=== PATIENT | female | born 1935 | race Caucasian/White ===

== ENCOUNTER 2017-07-24 08:37 | Inpatient (IN) | payer MEDICARE, OTHER ==
[~2017-07-24] VITALS: Ht 157.5 cm; Wt 54.4 kg
[~2017-07-24 08:37] MED LIST: ACCUNEB SO1.25 MG/1 INH; ACETAMINOPHEN325 M1 PO; ADULT LOW DOSE81 MG PO; ALBUTEROL; ALBUTEROL INHAL17 GM IH; ALBUTEROL2.5 MG/0.1; ALBUTEROL2.5 MG/31 INH; ALPHA LIPOIC A600 M1 PO; AMBEREN; ARAVA20 MG PO; AZITHROMYCIN 2250 MG PO; CEFTIN500 MG PO; CEFUROXIME500 MG PO; CENTRUM SILVER1 EAC4 PO; CITRATE OF MAG296 M1 PO; DOXYCYCLINE 10100 MG PO; DUONEB 2.5-0.5 M3 ML INH; ELEMENTAL CALC600 MG PO; FOLBIC RF TABL1 EACH PO; GLUCOPHAGE500 MG; GUAIFENESIN DM1 EACH PO; HYDROCHLOROTHIA25 M1 PO; HYDROCHLOROTHIA25 M2 PO; HYDROXYCHLOROQ200 M1 PO; LACTINEX CHEWA1 EACH PO; LEVAQUIN 500 M500 M2 PO; LEVOTHROID PO; LEVOXYL88 MCG PO; LOPRESSOR 50 MG50 M1 PO; MECLIZINE HCL25 M1 PO; MEDROLDOSEPACK PO; METFORMIN HCL500 MG PO; MOTION RELIEF25 MG PO; MUCINEX TA600 MG/TA2 PO; MULTIVITAMINS PO; OSELB75 PO; PEPCID20 MG PO; PRED FORTE 1% EY5 M1 OPHTHALMIC; PREDNISONE 10 M10 M1; PREDNISONE 10 M10 MG PO; PROAIR HFA8.5 GM INH; PROBIOTIC1 EAC1 PO; SIMVASTATIN10 MG PO; TOPROL XL50 MG PO; VITAMIN D1000 UNI1 PO; VITAMIN D3400 UNI1 PO; VITAMINC500 PO; ZITHROMAX250 MG PO; ZOCOR 10 MG TAB10 MG PO; ZPAK PO
[2017-07-24 08:52] VITALS: BP 177/86
[2017-07-24 09:16] LABS: ABSOLUTE BASOPHILS 0.1 thou/uL (0.0-0.2); ABSOLUTE EOSINOPHILS 0.4 thou/uL (0.0-0.7); ABSOLUTE LYMPHOCYTES 2.1 thou/uL (0.8-5.3); ABSOLUTE MONOCYTES 0.5 thou/uL (0.0-1.2); ABSOLUTE NEUTROPHILS 4.8 thou/uL (1.6-8.1); EOSINOPHILS 5.5 %; HEMATOCRIT 39.9 % (37.0-47.0); HEMOGLOBIN 13.2 gm/dL (12.0-15.0); LYMPHOCYTES 26.2 %; MCH 27.4 pg (26.0-34.0); MCV 83.1 fL (80.0-100.0); MONOCYTES 6.7 %; MPV 7.4 fl. (7.2-11.1); NUCLEATED RBCS 0 /100WBC; PLATELET COUNT* 295 thou/uL (150-400); POLYS 60.6 %; RBC 4.79 mil/uL (4.20-5.00); RDW-CV 14.7 % (10.5-14.5); WBC 7.9 thou/uL (4.0-11.0)
[2017-07-24 09:18] LABS: ANION GAP 8 mmol/L (7-16); BUN 15 mg/dL (7-18); CALCIUM 8.9 mg/dL (8.5-10.1); CHLORIDE 107 mmol/L (98-107); CO2 30 mmol/L (21-32); CREATININE 0.9 mg/dL (0.6-1.3); GLUCOSE 120 mg/dL (70-99); POTASSIUM 3.7 mmol/L (3.5-5.1); SODIUM 145 mmol/L (136-145)
[2017-07-24 09:25] LABS: ALBUMIN 3.4 g/dL (3.4-5.0); ALKALINE PHOSPHATASE 96 U/L (46-116); LIPASE 95 U/L (73-393); SGOT 14 U/L (15-37); SGPT 15 U/L (30-65); TOTAL BILIRUBIN 0.6 mg/dL (<0.1-1.0); TOTAL PROTEIN 6.7 g/dL (6.4-8.2); TROPONIN-I LEVEL <0.06 ng/mL (<0.06)
[2017-07-24 10:18] LABS: URINE BILIRUBIN NEGATIVE (Negative); URINE BLOOD NEGATIVE (Negative); URINE CLARITY CLEAR; URINE COLOR YELLOW; URINE GLUCOSE-RANDOM NEGATIVE (Negative); URINE KETONES NEGATIVE (Negative); URINE LEUKOCYTES-REFLEX NEGATIVE (Negative); URINE NITRITE-REFLEX NEGATIVE (Negative); URINE PROTEIN NEGATIVE (Negative); URINE UROBILINOGEN 0.2 E.U./dl (0.2-1.0)
[2017-07-24 13:00] VITALS: BP 177/86
[2017-07-24 13:23] VITALS: BP 177/86
[2017-07-24 21:30] VITALS: BP 150/67
[2017-07-25 00:31] VITALS: BP 133/62
[2017-07-25 03:57] VITALS: BP 128/53
[2017-07-25 04:37] LABS: HEMATOCRIT 36.7 % (37.0-47.0); HEMOGLOBIN 12.2 gm/dL (12.0-15.0); MCH 27.7 pg (26.0-34.0); MCHC 33.3 g/dL (28.0-37.0); MCV 83.1 fL (80.0-100.0); MPV 7.4 fl. (7.2-11.1); RBC 4.41 mil/uL (4.20-5.00); RDW-CV 14.9 % (10.5-14.5); WBC 9.8 thou/uL (4.0-11.0)
[2017-07-25 05:20] LABS: CALCIUM 8.7 mg/dL (8.5-10.1); CREATININE 0.9 mg/dL (0.6-1.3); MAGNESIUM 1.7 mg/dL (1.8-2.4); POTASSIUM 4.3 mmol/L (3.5-5.1)
[2017-07-25 08:00] VITALS: BP 140/62
--- NOTE | 2017-07-25 12:22 | EKG ---
[place] [address] ELECTROCARDIOGRAM REPORT Name: AMMY PISANO Room: [address] ADM IN M.R.#: [id number] Admission: 07/24/17 Attend Phys: Cesar Welch, Discharge: Date of : 37 Report #: [id number] THIS REPORT FOR: //name// [facility] ED Test Date: 2017-07-24 Test Time: 09:05:09 Pat Name: AMMY PISANO Department: Room: [facility] Gender: F Demo Coordinator: Ralph HILL : 1935 Requested By: Kulwinder Alonso Order Number: [id number] MD: Diogenes Lujan Measurements Intervals [place] Rate: 56 P: 49 FL: 126 QRS: -7 QRSD: 101 T: 95 QT: 448 QTc: 433 Interpretive Statements Sinus rhythm Inferior infarct, old Compared to ECG 03/13/2017 10:25:30 No significant changes Electronically Signed On 07-25-2017 12:21:48 INTERNATIONAL ACCOUNT MANAGER by Diogenes Lujan [email or web address] <ELECTRONICALLY SIGNED> By: Diogenes Lujan MD, [facility] 07/25/17 1221 0905 09 Diogenes Lujan MD, [facility] /EPI
[2017-07-25 15:43] VITALS: BP 155/69
[2017-07-25 20:45] VITALS: BP 138/67
[2017-07-26 03:19] VITALS: BP 132/48
[2017-07-26 08:31] VITALS: BP 140/70
[2017-07-26] MEDS ORDERED: COLACE100 MG PO (08:31)
[2017-07-26 16:00] VITALS: BP 126/64
[2017-07-26] MEDS ORDERED: MIRALAX17 GM PO (16:21)
[2017-07-26] MEDS ORDERED: HYDROCODONE-AP1 EAC6 PO (16:24)
[2017-07-26 16:57] VITALS: BP 140/70
[2017-07-26 17:03] VITALS: BP 140/70
--- NOTE | 2017-07-27 10:57 | S ---
[place] [address] SURGICAL PATH RPT PROCEDURE Name: ALIYAARELI SHEN Room: [address] IN M.R.#: [id number] Admission: 07/24/17 Date of : 37 Discharge: 07/26/17 Report #: [id number] Path Case #: [id number] PATHOLOGY REPORT COLLECTION DATE: 07/24/2017 RECEIVED DATE: 07/26/2017 SUBMITTING PHYS: Dr. Marion Harding OTHER PHYS: Dr. Cesar Cruz SPECIMEN(S) RECEIVED: A.Hernia sac B.Appendix * * * * * * * * * * * * FINAL DIAGNOSIS: A. Hernia sac: - Benign fibrofatty tissue with fibrosis and mild chronic inflammation. B. Appendix: - Benign, non-inflamed appendix (see comment) COMMENT: Review of Dr. Harding's operative report dated 07/24/2017 reveals an intraoperative finding of incarcerated femoral hernia with appendix entrapped. (GARFIELD:pit; 07/27/2017) PATHOLOGIST: Marcus Bruno M.D. REPORT ELECTRONICALLY SIGNED BY: Marcus Bruno M.D. DATE/TIME: 07/27/2017 10:57 * * * * * * * * * * * * GROSS PATHOLOGY: A. Received in formalin labeled "Aliya Areli Shen, hernia sac" and consists of 2 glistening, yellow orange fragments of adipose tissue measuring 2.5 x 2.2 x 0.6 cm and 5.0 x 4.0 x 1.0 cm. Sectioning each reveals no obvious gross lesions. Agricultural Produce Commission Agent sections are submitted as A1. B. Received in formalin labeled "Areli Pisano, appendix" and consists of a glistening calix-pink appendix measuring 6.4 cm in length by 0.5 cm in diameter. The margin is inked. Sectioning reveals a pinpoint lumen. The mucosa is glistening pink. There is gross fibrous obliteration at tip. Agricultural Produce Commission Agent sections are submitted as B1. (TEE; 07/26/2017) [place] [address] SURGICAL PATH RPT PROCEDURE Name: ARELI PISANO Room: [address] IN [facility].#: [id number] Admission: 07/24/17 Date of : 37 Discharge: 07/26/17 Report #: [id number] Path Case #: [id number] CLINICAL HISTORY: Right sided abdominal pain, knot right groin area INITIAL CPT CODE(S): A; 55813 B; 11947 Professional services performed by [facility] at [facility], [facility] , [place] [address]. Technical services performed by [facility] at [address] [place] [address], [address], [place] [address]. [facility] [address] [address] PHONE: [phone] DIRECTOR: Danilo King M.D. * * * END OF REPORT * * *
--- NOTE | 2017-08-11 00:59 | OP ---
[address] [address] OPERATIVE REPORT Name: AMMY PISANO Room: [address] IN M.R.#: [id number] Admission: 07/24/17 Attend Phys: Cesar Welch, Discharge: 07/26/17 Date of : 37 Report #: [id number] THIS REPORT FOR: //name// CC: Julio Welch DATE OF SERVICE: 07/24/2017 PREOPERATIVE DIAGNOSIS: Incarcerated Amyand hernia. POSTOPERATIVE DIAGNOSIS: De Garengeot hernia. PROCEDURE: 1. Repair of incarcerated femoral hernia, primary suture repair. 2. Appendectomy. 3. Mesh repair of inguinal hernia defect. SURGEON: Marion Harding MD AUTO HIKER: Colby Nino DO ESTIMATED BLOOD LOSS: 10 mL. COMPLICATIONS: None. FINDINGS: Incarcerated femoral hernia with appendix entrapped. SPECIMEN: 1. Appendix. 2. Hernia sac. IMPLANT: Ventrio ST hernia patch 8 x 12, reference #[id number] used for this procedure. DESCRIPTION OF PROCEDURE: Fully informed consent obtained preoperatively after full discussion of risks, benefits, alternatives with questions answered. The patient understood risk of bleeding, infection, reoperation, hernia recurrence, injury to underlying bowel, bladder among others, mesh complications, chronic pain and catastrophic complications up to and including cardiopulmonary failure and . The patient understood and wished to proceed. She was taken to the operating room, prepped and draped in standard sterile fashion. Timeout was performed with all in agreement. We began with an incision overlying the right groin, dissecting down through skin and subcutaneous tissue. This was midway between the ASIS and pubic tubercle. I came down upon the external oblique aponeurosis, vince was made in this with scalpel and [place] [address] OPERATIVE REPORT Name: AMMY PISANO Room: [address] IN [facility].#: [id number] Admission: 07/24/17 Attend Phys: Cesar Welch, Discharge: 07/26/17 Date of : 37 Report #: [id number] cranially and caudally. We came down upon the inguinal area. There was palpable inguinal hernia defect; however, this appeared to be a primarily femoral process. Therefore, I did make a counter incision, a second incision beneath the inguinal ligament over the mass itself, came down upon the hernia sac. This was circumferentially dissected up to the inguinal triangle. I opened up the sac, making sure no entrapped contents and the appendix was seen inside. I attempted to mobilize it back intraabdominally or pull out more; however, it was truly incarcerated. Therefore, I was able to work a hemostat beneath the inguinal ligament and this was divided with a scalpel. After dividing the inguinal ligament I was able to reduce the appendix hernia from the femoral compartment back into the inguinal compartment where I was able to work on it. Next, I performed an appendectomy. I took the mesentery with clamps and 0 silk ties. Next, I clamped the base of the appendix and then crushed in the middle and placed an additional clamp distally and amputated the appendix and sent to pathology. Part of the hernia sac was already sent to pathology. Appendix itself did not appear to have appendicitis. It did not appear to have appendicitis at this time. Therefore, I double suture ligated the appendix at its stump. Mucosal edges were burned. Inverted it with a pursestring stitch of 0 silk. This completed the appendectomy. Cecum was replaced back into the abdomen with ease. Given that there was no appendicitis, I did choose to close the appendix hernia with a mesh. I selected the Ventrio ST hernia patch, 8 x 12, trimmed to fit. It was anchored at the pubic tubercle and run up the shelving edge of the inguinal ligament. It was anchored at the pubic tubercle. Prior to running this mesh in, I took several stitches of 0 Ethibond and used cvhvyr-cv-zymks stitches to bring the shelving edge of the inguinal ligament down to the Brant ligament to close the femoral hernia defect. I palpated from the femoral side and indeed the femoral defect was completely closed. Next, I anchored the Ventrio ST hernia patch to pubic tubercle and ran with 0 Ethibond up to the inguinal ligament. I next anchored again pubic tubercle on medial side and ran to the rectus medially. This was anchored down, trimmed to fit so as to lay flat. I irrigated copiously including with bacitracin. I saw no evidence of bleeding. 0 Vicryl was used to reapproximate the medial edge of the external oblique down on top of the other edge of the external oblique, 3-0 Vicryl to close Jane's, 4-0 Monocryl to close the skin. A 3-0 Vicryl and 4-0 Monocryl were used to close the counter incision above the femoral area. Sterile dressing applied. Sponge, needle, instrument counts were correct at the end of the case. <ELECTRONICALLY SIGNED> By: Marion Harding MD 08/11/17 0059 1549 1757Darcy Leonarda Harding MD /nt
== END 2017-07-26 18:00 | disposition home or self-care (01) | DRG 342 ==
LOC: M.ERS 08:37 → M.TBA-ER 12:06 → M.ORTHSURG 18:30
PROVIDERS: Emergency Medicine Emergency Medical Services; ADMIT Family Medicine
DX: K40.30 Unilateral inguinal hernia, with obstruction, without gangrene, not specified as recurrent (principal); K41.30 Unilateral femoral hernia, with obstruction, without gangrene, not specified as recurrent; M06.9 Rheumatoid arthritis, unspecified; R33.9 Retention of urine, unspecified; E11.40 Type 2 diabetes mellitus with diabetic neuropathy, unspecified; I10 Essential (primary) hypertension; E89.0 Postprocedural hypothyroidism; Z90.710 Acquired absence of both cervix and uterus; Z98.42 Cataract extraction status, left eye; Z79.82 Long term (current) use of aspirin; Z79.899 Other long term (current) drug therapy; Z88.0 Allergy status to penicillin; Z88.1 Allergy status to other antibiotic agents; Z88.8 Allergy status to other drugs, medicaments and biological substances

== ENCOUNTER → 2018-08-16 | Outpatient (CLI) | payer MEDICARE, OTHER ==
[~2018-08-16] MED LIST changes: +COLACE100 MG PO; +HYDROCODONE-AP1 EAC6 PO; +MIRALAX17 GM PO
== END ==
LOC: M.RAD 08-08 09:57
DX: Z12.31 Encounter for screening mammogram for malignant neoplasm of breast (principal); N91.2 Amenorrhea, unspecified; Z78.0 Asymptomatic menopausal state

== ENCOUNTER 2019-03-15 14:53 | Emergency (ER) | payer MEDICARE, OTHER ==
[~2019-03-15] VITALS: Ht 157.5 cm; Wt 54.4 kg
[2019-03-15 15:43] LABS: URINE BILIRUBIN NEGATIVE (Negative); URINE BLOOD NEGATIVE (Negative); URINE CLARITY CLEAR; URINE COLOR YELLOW; URINE GLUCOSE-RANDOM NEGATIVE (Negative); URINE KETONES NEGATIVE (Negative); URINE LEUKOCYTES-REFLEX NEGATIVE (Negative); URINE NITRITE-REFLEX NEGATIVE (Negative); URINE PROTEIN NEGATIVE (Negative); URINE UROBILINOGEN 0.2 E.U./dl (0.2-1.0)
[2019-03-15 15:59] LABS: CALCIUM 9.6 mg/dL (8.5-10.1); CREATININE 0.9 mg/dL (0.6-1.3); POTASSIUM 3.9 mmol/L (3.5-5.1)
[2019-03-15 16:01] LABS: ABSOLUTE BASOPHILS 0.1 thou/uL (0.0-0.2); ABSOLUTE EOSINOPHILS 0.5 thou/uL (0.0-0.7); ABSOLUTE LYMPHOCYTES 2.4 thou/uL (0.8-5.3); ABSOLUTE MONOCYTES 0.5 thou/uL (0.0-1.2); ABSOLUTE NEUTROPHILS 7.4 thou/uL (1.6-8.1); EOSINOPHILS 4.9 %; HEMATOCRIT 42.1 % (37.0-47.0); HEMOGLOBIN 13.9 gm/dL (12.0-15.0); LYMPHOCYTES 21.6 %; MCH 28.1 pg (26.0-34.0); MPV 7.9 fl. (7.2-11.1); NUCLEATED RBCS 0 /100WBC; PLATELET COUNT* 278 thou/uL (150-400); POLYS 67.5 %; RBC 4.95 mil/uL (4.20-5.00); RDW-CV 15.3 % (10.5-14.5); WBC 10.9 thou/uL (4.0-11.0)
[2019-03-15 16:02] LABS: APTT 25.8 Seconds (25.0-31.3); PROTIME 10.2 Seconds (9.20-11.50)
[2019-03-15 16:03] LABS: ALBUMIN 3.8 g/dL (3.4-5.0); TOTAL BILIRUBIN 0.5 mg/dL (<0.1-1.0); TOTAL PROTEIN 7.4 g/dL (6.4-8.2)
[2019-03-15 16:44] VITALS: BP 157/74
--- NOTE | 2019-03-15 16:45 | EKG ---
[place] [address] ELECTROCARDIOGRAM REPORT Name: AMMY PISANO Room: [facility]#: [id number] Admission: 03/15/19 Attend Phys: Discharge: 03/15/19 Date of : 37 Report #: [id number] THIS REPORT FOR: //name// [facility] ED Test Date: 2019-03-15 Test Time: 15:04:29 Pat Name: AMMY PISANO Department: Room: Gender: F Software Tools Build Engineer: STEVIE : 1935 Requested By: Spencer Nguyen Order Number: [id number] MD: Blane Campbell Measurements Intervals [place] Rate: 67 P: 53 FL: 135 QRS: 20 QRSD: 91 T: 99 QT: 405 QTc: 428 Interpretive Statements Sinus rhythm Borderline repolarization abnormality Baseline wander in lead(s) V6 Compared to ECG 07/24/2017 09:05:09 Myocardial infarct finding no longer present Electronically Signed On 03-15-2019 16:45:06 CDT by Blane Campbell [email or web address] <ELECTRONICALLY SIGNED> By: Blane Campbell MD, [facility] 03/15/19 1645 1504 1504 Blane Campbell MD, FAC /EPI
== END 2019-03-15 16:44 | disposition home or self-care (01) ==
LOC: M.ERS 14:53
PROVIDERS: Family Medicine
DX: R51 Headache (principal); M06.9 Rheumatoid arthritis, unspecified; E11.40 Type 2 diabetes mellitus with diabetic neuropathy, unspecified; Z88.0 Allergy status to penicillin; Z88.1 Allergy status to other antibiotic agents; Z88.8 Allergy status to other drugs, medicaments and biological substances; Z90.710 Acquired absence of both cervix and uterus

== ENCOUNTER → 2019-03-29 | Outpatient (CLI) | payer MEDICARE, OTHER ==
--- NOTE | 2019-03-29 16:53 | CARDNUC ---
[place] [address] CARDIAC NUCLEAR IMAGING REPORT Name: AMMY PISANO Room: [facility]#: [id number] Admission: 03/29/19 Attend Phys: Ryann Kirby, Discharge: Date of : 37 Date of Service: 03/29/19 1653 Report #: [id number] THIS REPORT FOR: //name// APPROVED REPORT Study performed: 03/29/2019 14:20:31 Exam: Nuclear Stress Test Indication: Abnormal EKG Patient Location: Out-Patient Stress Tech: Nelly Fry Stress Nurse: Kay Weaver RN NM Tech:RUTH Loco Ht: 5 ft 2 in Wt: 123 lbs BSA: 1.55 m2 BMI: 22.49 Medical History Medical History: copd, hyperlipidemia Medications: no cardiac meds Allergies: amlodipine, levofloxacin, lisinopril, penicillin Cardiac Risk Factors: age, hyperlipidemia, copd Exercise History: Sedentary Stress Test Details Stress Test: Pharmacologic stress testing performed using 0.4 mg of regadenoson per 5 mL given IV over 10 seconds. Reason for pharmacologic stress test: physical limitation. HR Resting HR: 56 bpm Max Heart Rate (APMHR): 137 bpm Max HR Achieved: 80 bpm Target HR (85% APMHR): 116 bpm % of APMHR: 58 Recovery HR: 73 bpm BP Resting BP: 169/89 mmHg Max BP: 202/87 mmHg ECG Resting ECG: Sinus Rhythm, nonspecific ST-T abnormalities Stress ECG: Sinus Rhythm, nonspecific ST-T abnormalities ST Change: None Arrhythmia: [place] [address] CARDIAC NUCLEAR IMAGING REPORT Name: EVAN PISANOCY Brandon Room: [facility]#: [id number] Admission: 03/29/19 Attend Phys: Ryann Kirby, Discharge: Date of : 37 Date of Service: 03/29/19 1653 Report #: [id number] Recovery ECG: Sinus Rhythm, nonspecific ST-T abnormalities Recovery ST Change: None Recovery Arrhythmia: None Clinical Reason for Termination: Completed protocol Exercise duration: 0 min sec Exercise capacity: 1 METs The patient tolerated Lexiscan infusion without significant cardiac symptoms. Nurse Comments pt walks with a cane and is unable to walk on treadmill Stress ECG Conclusion The baseline 12-lead EKG shows sinus rhythm with nonspecific ST segment depression. EKGs obtained during and post Lexiscan infusion showed sinus rhythm with no significant ST segment changes when compared to baseline. There were no significant stress-induced arrhythmias. NM EXAM: Myocardial Perfusion REST/STRESS Imaging Protocol: Rest Tc-99m/Stress Tc-99m 1 day Resting Data Rest SPECT myocardial perfusion imaging was performed in supine position 30 minutes following the intravenous injection of 11.0 mCi of Tc-99m Sestamibi. Time of rest injection: 1300 Date: 03/29/2019 The images were gated to evaluate regional wall motion and calculate left ventricular ejection fraction. Administration Route: IV Administration Site: Right AC Pharmacologic Stress Pharmacologic stress test was performed by injecting Regadenoson 0.4 mg IV push followed by the intravenous injection of 34.3 mCi of Tc-99m Sestamibi. Time of stress injection: 1425 Date: 03/29/2019 Administration Route: IV Administration Site: Right AC Gated Stress SPECT was performed 40 minutes after stress injection. The images were gated to evaluate regional wall motion and calculate left [place] [address] CARDIAC NUCLEAR IMAGING REPORT Name: ALIYAAMMY Taylor Room: [facility]#: [id number] Admission: 03/29/19 Attend Phys: Ryann Kirby, Discharge: Date of : 37 Date of Service: 03/29/19 1653 Report #: [id number] Prone imaging was performed. Study Quality Study: Good Artifact: No artifact Study Data At rest, the left ventricular ejection fraction was 69%.. Post stress, the left ventricular ejection was 73%.. TID = 1.20. Perfusion Normal left ventricular perfusion. Wall Motion Normal left ventricular wall motion. Nuclear Conclusion ECG Findings: non-diagnostic Clinical Findings: negative for ischemia Nuclear Findings: negative for ischemia Exercise Capacity: not assessed Left Ventricular Function: normal Risk Study: low Myocardial perfusion images showed no defect to suggest infarct or ischemia. Left ventricular systolic function appears normal on gated studies. This is a low risk study. <Conclusion> The baseline 12-lead EKG shows sinus rhythm with nonspecific ST segment depression. EKGs obtained during and post Lexiscan infusion showed sinus rhythm with no significant ST segment changes when compared to baseline. There were no significant stress-induced arrhythmias. <ELECTRONICALLY SIGNED> By: Diogenes Lujan MD, FACC 03/29/19 1653 165 165 Diogenes Lujan MD, FACC /INF
== END ==
LOC: M.NUC 03-14 11:01
DX: R94.31 Abnormal electrocardiogram [ECG] [EKG] (principal); J44.9 Chronic obstructive pulmonary disease, unspecified; E78.5 Hyperlipidemia, unspecified

== ENCOUNTER 2019-12-16 08:06 | Emergency (ER) | payer MEDICARE, OTHER ==
[~2019-12-16] VITALS: Ht 157.5 cm; Wt 55.8 kg
[2019-12-16 08:18] VITALS: BP 137/71
[2019-12-16] MEDS ORDERED: LEVO-T100 MCG PO (08:21)
[2019-12-16] MEDS ORDERED: LIPITOR40 MG PO (08:22)
[2019-12-16] MEDS ORDERED: TELMISARTAN40 MG PO (08:22)
[2019-12-16] MEDS ORDERED: NORVASC 2.5 MG2.5 M1 PO (08:22)
[2019-12-16] MEDS ORDERED: STIOLTO RESPIMAT4 GM INH (08:23)
[2019-12-16 08:40] LABS: URINE BILIRUBIN NEGATIVE (Negative); URINE BLOOD NEGATIVE (Negative); URINE CLARITY CLEAR; URINE COLOR YELLOW; URINE GLUCOSE-RANDOM NEGATIVE (Negative); URINE KETONES NEGATIVE (Negative); URINE LEUKOCYTES-REFLEX NEGATIVE (Negative); URINE NITRITE-REFLEX NEGATIVE (Negative); URINE PROTEIN NEGATIVE (Negative); URINE UROBILINOGEN 0.2 E.U./dl (0.2-1.0)
[2019-12-16 09:04] LABS: ABSOLUTE BASOPHILS 0.1 thou/uL (0.0-0.2); ABSOLUTE EOSINOPHILS 0.6 thou/uL (0.0-0.7); ABSOLUTE LYMPHOCYTES 1.8 thou/uL (0.8-5.3); ABSOLUTE MONOCYTES 0.6 thou/uL (0.0-1.2); ABSOLUTE NEUTROPHILS 4.3 thou/uL (1.6-8.1); BASOPHILS 1.4 %; EOSINOPHILS 7.6 %; HEMATOCRIT 31.9 % (37.0-47.0); HEMOGLOBIN 11.1 gm/dL (12.0-15.0); LYMPHOCYTES 24.8 %; MCH 29.4 pg (26.0-34.0); MCHC 34.7 g/dL (28.0-37.0); MCV 84.8 fL (80.0-100.0); MONOCYTES 7.9 %; MPV 7.6 fl. (7.2-11.1); NUCLEATED RBCS 0 /100WBC; PLATELET COUNT* 236 thou/uL (150-400); POLYS 58.3 %; RBC 3.76 mil/uL (4.20-5.00); RDW-CV 14.4 % (10.5-14.5); WBC 7.4 thou/uL (4.0-11.0)
[2019-12-16 09:14] LABS: CALCIUM 8.3 mg/dL (8.5-10.1); POTASSIUM 3.9 mmol/L (3.5-5.1)
[2019-12-16 09:18] LABS: ALBUMIN 3.3 g/dL (3.4-5.0); TOTAL BILIRUBIN 1.2 mg/dL (<0.1-1.0); TOTAL PROTEIN 6.3 g/dL (6.4-8.2)
[2019-12-16] MEDS ORDERED: NORCO 5-325 TA1 EAC2 PO (13:34)
[2019-12-16] MEDS ORDERED: ZOFRAN ODT4 MG DISSOLVE (13:34)
[2019-12-16 14:04] VITALS: BP 147/70
--- NOTE | 2019-12-18 11:03 | EKG ---
[place] [address] ELECTROCARDIOGRAM REPORT Name: AMMY PISANO Room: [facility]#: [id number] Admission: 12/16/19 Attend Phys: Discharge: 12/16/19 Date of : 37 Date of Service: 12/16/19829 Report #: [id number] THIS REPORT FOR: //name// ED Test Date: 2019-12-16 Test Time: 08:30:47 Pat Name: AMMY PISANO Department: Room: [facility] Gender: F Supervisor Border Department: TDS : 1935 Requested By: Kulwinder Alonso Order Number: [id number] MD: Blane Campbell Measurements Intervals [place] Rate: 62 P: 37 UT: 133 QRS: -8 QRSD: 105 T: 44 QT: 433 QTc: 440 Interpretive Statements Sinus rhythm Baseline wander in lead(s) II,III,aVF Compared to ECG 03/15/2019 15:04:29 No significant changes Electronically Signed On 12-18-2019 11:03:10 CDT by Blane Campbell [email or web address] <ELECTRONICALLY SIGNED> By: Blane Campbell MD, [facility] 12/18/19 1103 9 Blane Campbell MD, [facility] /EPI
== END 2019-12-16 14:07 | disposition home or self-care (01) ==
LOC: M.ERS 08:06 → M.TBA-ER 12:58 → M.ERS 12:58
PROVIDERS: Emergency Medicine Emergency Medical Services
DX: R10.32 Left lower quadrant pain (principal); K40.90 Unilateral inguinal hernia, without obstruction or gangrene, not specified as recurrent; M06.9 Rheumatoid arthritis, unspecified; E89.0 Postprocedural hypothyroidism; E11.40 Type 2 diabetes mellitus with diabetic neuropathy, unspecified; Z88.0 Allergy status to penicillin; Z88.1 Allergy status to other antibiotic agents; Z90.710 Acquired absence of both cervix and uterus

== ENCOUNTER → 2019-12-21 | Outpatient (CLI) | payer MEDICARE, OTHER ==
[~2019-12-21] MED LIST changes: +LEVO-T100 MCG PO; +LIPITOR40 MG PO; +NORCO 5-325 TA1 EAC2 PO; +NORVASC 2.5 MG2.5 M1 PO; +STIOLTO RESPIMAT4 GM INH; +TELMISARTAN40 MG PO; +ZOFRAN ODT4 MG DISSOLVE
== END ==
LOC: M.LAB 09:52
PROVIDERS: ATTEND Surgery
DX: Z01.812 Encounter for preprocedural laboratory examination (principal); Z11.59 Encounter for screening for other viral diseases

== ENCOUNTER → 2019-12-26 | Day surgery (SDC) | payer MEDICARE, OTHER ==
[~2019-12-26] MED LIST changes: +ULTRAM50 MG PO
--- NOTE | 2019-12-26 11:55 | OP ---
[address] [address] OPERATIVE REPORT Name: AMMY PISANO Room: [facility].#: [id number] Admission: 12/26/19 Attend Phys: Sumaya Dooley DO Discharge: Date of : 37 Report #: [id number] THIS REPORT FOR: //name// cc: XIMENA HALL NP, KATHERINE J. NP ~ THIS REPORT FOR: //name// CC: Suamya Hall NP DICTATED BY: Roxane Shaw DO DATE OF SERVICE: 12/26/2019 PREOPERATIVE DIAGNOSIS: Left inguinal hernia. POSTOPERATIVE DIAGNOSIS: Left inguinal hernia. PROCEDURE PERFORMED: Left inguinal hernia repair with mesh. PRIMARY SURGEON: Sumaya Dooley DO DISTRIBUTION ENGINEER: Roxane Shaw DO, PGY3 SECOND FEEDER WORKER POWER UNIT OPERATOR: KWESI Rincon. ANESTHESIA: General and local. ESTIMATED BLOOD LOSS: 5 mL. SPECIMEN REMOVED: None. FINDINGS: Incarcerated left indirect inguinal hernia containing fat. COMPLICATIONS: None. INDICATIONS FOR PROCEDURE: The patient is a pleasant 84-year-old female who presented to the Emergency Department on 12/16/2019 with complaint of worsening left groin pain. She had a known left inguinal hernia that was seen on prior imaging, but was asymptomatic at that time. During her recent ER visit, the hernia was easily reduced. Lab work was all benign. She was discharged home and followed up in our office to schedule elective surgery. The procedure, risks, benefits, possible complications to include bleeding, infection, injury to surrounding structures, need for additional surgery, wound complications, risks of anesthesia, and other risks of surgery were all discussed with the [address] [address] OPERATIVE REPORT Name: AMMY PISANO Room: [facility]#: [id number] Admission: 12/26/19 Attend Phys: Sumaya Dooley, DO Discharge: Date of : 37 Report #: [id number] patient in great detail. She voiced complete understanding and wished to proceed with surgery. Patient did receive preop covid testing and was negative. DESCRIPTION OF PROCEDURE: Informed consent was obtained. The patient was taken to the operating room and placed supine on the operating room table. General endotracheal anesthesia was induced without difficulty. SCDs were placed on bilateral lower extremities. Preoperative antibiotics were given. The operative side had been marked in the preoperative area. The abdomen was prepped and draped in the standard sterile fashion. A timeout was performed to ensure correct patient and procedure. We began by marking ASIS as well as a pubic tubercle. Ruler was used to taylor out a straight line between these two structures. Approximately 10 mL of 0.5% Marcaine were then injected in the area of our planned incision. A 6 cm incision was made using a #10 blade scalpel in line between the ASIS and pubic tubercle. The incision was carried down through the subcutaneous tissues using electrocautery. Combination of blunt dissection and electrocautery were used to continue the dissection down to the level of the external oblique fascia. One small vein was double clamped and ligated with 3-0 silk sutures. A Weitlaner retractor was then used to retract surrounding tissues and expose the external oblique fascia. Fascia was grasped between 2 hemostats and elevated. Metzenbaum scissors were used to incise the fascia. Fascia was opened in the direction of the fibers, taking care to avoid the ilioinguinal nerve. Once the external oblique fascia was completely opened, we then began to dissect away inguinal ring structures from the fascial edges. This was accomplished using blunt dissection. We carried this dissection all the way down to the pubic tubercle and back towards the ASIS. We did palpate some firm incarcerated fat within the hernia sac towards the pubic tubercle. Once we were able to get completely around our round ligament, the hernia sac and contents was identified. It appeared to contain some incarcerated fat. It was dissected free from surrounding tissues. We dissected all the way down to the level of the fascial defect. She appeared to have fairly large defect and the hernia appeared to be indirect. The round ligament was identified and dissected away from surrounding structures. The round ligament was then clamped with a hemostat proximally and distally, transected between the 2 hemostats using Metzenbaum scissors and then tied with a 2-0 silk. We then continued to bluntly dissect away surrounding tissues from the hernia sac and contents. Once it was completely freed from surrounding tissues, it was reduced back into the abdomen through the fascial defect. Because the fascial defect appeared large, we elected to reapproximate the fascial edges. This was accomplished using a 2-0 Prolene suture in interrupted and eahppj-zq-vdcqi fashion. There was no tension at the closure. Once the fascial defect was closed, we were then ready to place [place] [address] OPERATIVE REPORT Name: AMMY PISANO Room: [facility]#: [id number] Admission: 12/26/19 Attend Phys: Sumaya Dooley DO Discharge: Date of : 37 Report #: [id number] of the inguinal ring. ProGrip mesh was chosen and then trimmed to an appropriate size to fit in the space. The mesh was placed to cover the pubic tubercle. It was secured to the pubic tubercle using a 2-0 Prolene suture. The mesh was then flattened out into the floor of our inguinal ring and then secured superiorly, inferiorly and laterally as well using 2-0 Prolene suture. Of note, the ileoinguinal nerve was identified and protected away from the mesh. 10mls of .5% marcaine was injected at the pubic tubercle. The Weitlaner retractor was removed. The external oblique fascia was closed using a 3-0 Vicryl suture in a running fashion, taking care to avoid the nerve. We then closed the deep subcutaneous tissue using 3-0 Vicryl suture in a simple interrupted and inverted fashion. We injected additional 0.5% Marcaine for local anesthesia. The more superficial subcutaneous tissues were closed using 3-0 Vicryl suture in a simple interrupted fashion. 10mls of .5% marcaine were injected in a block type fashion 1 fingerbreath medial to the ASIS. The skin was closed using 4-0 Monocryl suture in a running subcuticular fashion. The skin was cleansed and dried. Dermabond was applied to the incision. The patient tolerated the procedure very well. She was allowed to awaken in the operating room, was transferred to the PACU in stable condition with plans to discharge home today. <ELECTRONICALLY SIGNED> By: Sumaya Dooley DO 12/26/19 1155 0923 1021Cchasity Dooley DO /johnnie
== END | disposition home or self-care (01) ==
LOC: M.SUR 05:31
PROVIDERS: ATTEND Surgery
DX: K40.30 Unilateral inguinal hernia, with obstruction, without gangrene, not specified as recurrent (principal); E11.9 Type 2 diabetes mellitus without complications; J44.9 Chronic obstructive pulmonary disease, unspecified; Z79.899 Other long term (current) drug therapy; Z79.82 Long term (current) use of aspirin; Z98.890 Other specified postprocedural states; Z88.0 Allergy status to penicillin; Z88.1 Allergy status to other antibiotic agents

== ENCOUNTER 2021-01-02 14:26 | Emergency (ER) | payer MEDICARE, OTHER ==
[~2021-01-02] VITALS: Ht 152.4 cm; Wt 56.7 kg
[2021-01-02 16:17] LABS: URINE BILIRUBIN NEGATIVE (Negative); URINE BLOOD TRACE (Negative); URINE CLARITY SL CLOUDY; URINE COLOR YELLOW; URINE GLUCOSE-RANDOM NEGATIVE (Negative); URINE KETONES NEGATIVE (Negative); URINE LEUKOCYTES-REFLEX 3+ (Negative); URINE NITRITE-REFLEX POSITIVE (Negative); URINE PROTEIN NEGATIVE (Negative); URINE SPECIFIC GRAVITY <= 1.005 (1.005-1.030); URINE UROBILINOGEN 0.2 E.U./dl (0.2-1.0)
[2021-01-02 16:26] LABS: CASTS None Seen /LPF (None Seen); SQUAMOUS >10 Many /LPF (0-3); URINE RBC 0-2 Rare /HPF (0-2); URINE WBC-REFLEX >25 Many /HPF (0-5)
[2021-01-02 16:27] LABS: CRYSTALS None Seen /LPF (None Seen)
[2021-01-02] MEDS ORDERED: MACROBID 100 M100 MG PO (16:52)
[2021-01-02 17:11] VITALS: BP 157/69
== END 2021-01-02 17:13 | disposition home or self-care (01) ==
LOC: M.ERS 14:26
PROVIDERS: Physician Assistant
DX: S00.83XA Contusion of other part of head, initial encounter (principal); N39.0 Urinary tract infection, site not specified; Z88.0 Allergy status to penicillin; Z79.899 Other long term (current) drug therapy; M79.672 Pain in left foot; W17.89XA Other fall from one level to another, initial encounter; Y93.89 Activity, other specified; Y92.89 Other specified places as the place of occurrence of the external cause; Y99.8 Other external cause status

== ENCOUNTER → 2021-01-14 | Outpatient (CLI) | payer MEDICARE, OTHER ==
[~2021-01-14] MED LIST changes: +MACROBID 100 M100 MG PO
== END ==
LOC: M.RAD 13:16
PROVIDERS: ATTEND Nurse Practitioner Family
DX: M81.0 Age-related osteoporosis without current pathological fracture (principal)